=== PATIENT | male | born 1995 | race Caucasian/White ===

== ENCOUNTER 2022-07-01 11:26 | Outpatient (CLI) | payer OTHER, SELFPAY ==
[2022-07-01 11:49] LABS: Hematocrit 45.6 % (42.0-52.0); Hemoglobin 16.2 g/dL (14.0-18.0); Mean Corpuscular HGB Conc 35.5 g/dl (32-36); Mean Corpuscular Hemoglobin 30.6 pg (26-34); Mean Corpuscular Volume 86.2 fl (80-100); Mean Platelet Volume 10.5 fl (7.4-10.4); Platelet Count Result 207 k/mm3 (150-375); Red Blood Count 5.29 M/mm3 (4.6-6.20); Red Cell Distribution Width 12.3 % (11.5-14.5); White Blood Count 7.2 K/mm3 (4.5-10.0)
[2022-07-01 12:02] LABS: Alanine Aminotransferase 51 U/L (6-50); Albumin Level 5.2 g/dL (3.5-5.1); Alkaline Phosphatase 73 U/L (38-126); Anion Gap 15 mmol/L (8-16); Aspartate Amino Transferase 36 U/L (17-59); Bilirubin,Total 0.9 mg/dL (0.2-1.3); Blood Urea Nitrogen 12 mg/dL (9-20); CRP < 0.5 mg/dL (<1.0); Calcium 10.2 mg/dL (8.4-10.2); Carbon Dioxide 27 mmol/L (22-30); Chloride 98 mmol/L (98-107); Estimated Glomerular Filt Rate > 60; Glucose 92 mg/dL (65-110); Potassium 4.1 mmol/L (3.4-5.0); Sodium 140 mmol/L (137-145)
[2022-07-01 12:29] LABS: Erythrocyte Sedimentation Rate 1 mm/hr (0-20)
== END 2022-07-01 11:27 | disposition home or self-care (01) ==
PROVIDERS: PCP Family Medicine; Visit Provider Nurse Practitioner Family
DX: R19.4 Change in bowel habit (principal); R10.9 Unspecified abdominal pain
CPT/HCPCS: 36415; 80053; 85027; 85652; 86140

== ENCOUNTER 2022-07-05 12:36 | Outpatient (CLI) | payer OTHER, SELFPAY ==
[2022-07-15 15:46] LABS: Calprotectin, Stool 10 mcg/g
== END 2022-07-05 12:37 | disposition home or self-care (01) ==
PROVIDERS: PCP Family Medicine; Visit Provider Nurse Practitioner Family
DX: R10.9 Unspecified abdominal pain (principal); R19.4 Change in bowel habit
CPT/HCPCS: 83993

== ENCOUNTER 2022-07-28 02:07 | Day surgery (SDC) | payer OTHER, SELFPAY ==
[2022-07-19 12:55] VITALS: BMI 28.6
--- NOTE | 2022-07-27 16:50 | PM.HPGS ---
History of Present Illness History of Present Illness Consent: Risks, benefits, and alternatives have been discussed and questions answered. Patient agrees to proceed with procedure. Chief complaint: epigastric pain Narrative: Yair Rico is a 26 year old male was referred ?for evaluation of epigastric abdominal pain. ? States he has had epigastric abdominal pain for approximately a year now. ? At times epigastric pain will radiate to right upper quadrant and occasionally down to bilateral lower abdomen. ? Epigastric pain is worse in the AM and before eating. Pain improves after eating but reports excessive belching after eating.? he cannot identify any particular foods that make his symptoms worse. He tried omeprazole 20 mg for approximately 2 weeks back in September with no improvement in symptoms. Review of Systems Review of Systems: All systems reviewed & are unremarkable except as noted in HPI and below PMFSH Past Medical History Medical History Abdominal pain Change in bowel habits Social History Social History Smoking status: Never smoker Alcohol intake: current Drinks per week: 1 Alcohol use details: rare Substance use: never Substance use type: does not use Lack of Transportation: No Lack of Food: Never True Current Housing: I Have Housing Concerned About Future Housing: No Difficulty Paying Gas/Electric Bills: No Difficulty Paying for Meds: No Currently Unemployed: No Education: Decline to Answer Difficulty w/ Childcare or Family Care: No Living arrangements: with family 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[place] Spiritual care concerns: No Meds Home Medications and Allergies Home Medications Medication Instructions Recorded Confirmed Type lisinopril 10 1 tablet PO DAILY #90 tabs 06/22/22 07/19/22 Rx mg-hydrochlorothiazide 12.5 mg tablet Allergies Allergy/AdvReac Type Severity Reaction Status Date / Time No Known Allergies Allergy Verified 07/28/22 06:40 Exam Const: General: alert Orientation/consciousness: patient oriented x3 Resp: Auscultation: clear to auscultation bilaterally Cardio: Rhythm: regular rhythm GI: GI Palp: Yes Soft to palpation and No Tenderness to palpation present (GI) Neuro: General: patient oriented x3 Assessment and Plan Assessment and plan (1) Epigastric pain: Code(s): R10.13 - Epigastric pain Status: Acute Assessment and Plan: EGD with possible biopsy or dilatation or cautery.
[2022-07-28 06:41] VITALS: BP 142/81; PULSE 78; RESP 18; TEMP 36.7; O2SAT 100; BMI 29.1
[2022-07-28] MEDS: LACTATED RINGERS 1,000 ML 150 ML IV CONT (06:51)
--- NOTE | 2022-07-28 07:20 | WPDANESEPPF ---
Anes - Initial Pre Proc Eval Procedure: Operation Date: 07/28/22 07:30 Proposed Procedures p Esophagogastroduodenoscopy EGD - Jose Rosen MD Date/Time: 07/28/22 07:20 Surgeon: Jose Rosen MD Pre Op Diagnosis: epigastric pain Patient Data Age: 26 Gender: M Height: 1.65 m Weight: 79.5 kg Last Vital Signs Temp 98.1 F 07/28/22 06:41 Pulse 78 07/28/22 06:41 Resp 18 07/28/22 06:41 BP 142/81 H 07/28/22 06:41 Pulse Ox 100 07/28/22 06:41 O2 Del Method Room Air 07/28/22 06:41 Allergies Allergy/AdvReac Type Severity Reaction Status Date / Time No Known Allergies Allergy Verified 07/28/22 06:40 Home Medications Medication Instructions Recorded Confirmed Type lisinopril 10 1 tablet PO DAILY #90 tabs 06/22/22 07/28/22 Rx mg-hydrochlorothiazide 12.5 mg tablet Patient hx anesthesia problems: none Family hx anesthesia problems: none Results Review: All pre-operative results and documents have been reviewed as part of the pre-operative evaluation. [facility] Past Medical History Medical History Abdominal pain Change in bowel habits Social History Social History Smoking status: Never smoker Alcohol intake: current Drinks per week: 1 Alcohol use details: rare Substance use: never Substance use type: does not use Lack of Transportation: No Lack of Food: Never True Current Housing: I Have Housing Concerned About Future Housing: No Difficulty Paying Gas/Electric Bills: No Difficulty Paying for Meds: No Currently Unemployed: No Education: Decline to Answer Difficulty w/ Childcare or Family Care: No Living arrangements: with family 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 Informed Consent: The patient's anesthetic plan and its attendant risks and benefits were discussed with the patient/family/POA. Questions were solicited and answers provided to the satisfaction of the patient/family/POA.
[2022-07-28 07:37] VITALS: BP 92/54; PULSE 73; RESP 17; O2SAT 97
[2022-07-28 07:47] VITALS: BP 108/57; PULSE 81; RESP 22; O2SAT 100
[2022-07-28 07:57] VITALS: BP 118/74; PULSE 67; RESP 21; O2SAT 100
== END 2022-07-28 08:04 | disposition home or self-care (01) ==
PROVIDERS: PCP Family Medicine; Visit Provider Internal Medicine Gastroenterology
PROC: 0DJ08ZZ Inspection of Upper Intestinal Tract, Via Natural or Artificial Opening Endoscopic (ICD-10-PCS; CPT 43235; principal; 2022-07-28 07:30)
DX: R10.13 Epigastric pain (principal)
CPT/HCPCS: 43239; 87081; 88305; J2704; J7120

== ENCOUNTER 2022-08-20 07:36 | Outpatient (CLI) | payer OTHER, SELFPAY ==
--- NOTE | ~2022-08-20 | US_ITS ---
Abdominal Sonogram: Real-time sonographic imaging of the abdomen was performed. Clinical History: Abdominal pain Findings: The liver appears normal with no evidence of mass lesion or bile duct dilatation. Main por gavin vein demonstrates normal direction of flow. The spleen is normal in size without evidence of foca l lesion. The gallbladder is well distended, and appears normal with no evidence of gallstone or wal l thickening. The common bile duct measures 4 mm. The visualized pancreas, aorta, and IVC are unrema rkable. The right kidney measures 10.3 cm in length and the left kidney measures 10.1 cm. There is no hydronephrosis or renal calculus. Impression: Unremarkable abdominal ultrasound. Reviewed, dictated and finalized at location . [facility] Impression: Unremarkable abdominal ultrasound.
== END 2022-08-20 07:37 | disposition home or self-care (01) ==
PROVIDERS: PCP Family Medicine; Visit Provider Internal Medicine Gastroenterology
DX: R10.9 Unspecified abdominal pain (principal)
CPT/HCPCS: 76700

== ENCOUNTER 2023-05-17 08:23 | Outpatient (CLI) | payer OTHER, SELFPAY ==
--- NOTE | 2023-05-29 14:00 | WPDHOMESLEEP ---
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 He has hypertension, takes lisinopril-hydrochlorothiazide. He never has a refreshing night of sleep. He occasionally awakens from sleep short of breath. He frequently wakes at night with heartburn, belching or cough.??He frequently snores, and frequently snores loudly enough that others complain. His tells him that he stops breathing at night. He frequently has trouble sleeping when he has a cold. He occasionally wakes up gasping for breath during the night. He frequently has breathing problems at night. He never sweats excessively at night. He never notices his heart pounding or beating irregularly during the night. He never falls asleep during the day. He rarely falls asleep involuntarily, never falls asleep while driving. He never experiences loss of muscle tone with strong emotion. He never feels paralyzed on waking or falling asleep. He never experiences vivid dreams upon waking or falling asleep. He never feels afraid of going to sleep. He never has nightmares. He rarely recalls his dreams. He occasionally has thoughts racing through his mind. He rarely feels sad or depressed. He occasionally feels anxiety. He never notices parts of his body jerk. He never kicks during the night. He never feels crawling or aching feelings in his legs. He never feels leg pain at night. He never grinds his teeth, never has morning jaw pain. He never feels bothered by pain during the day, never is awakened by pain during the night. He never wakes up feeling stiff in the morning, never wakes feeling sore or achy in the morning. He occasionally awakens with pain in his neck, spine, or joints. He has headaches. He rarely wakes up feeling refreshed. Normal bedtime is 10:00 p.m., usually falling asleep within 10-30 minutes. He wakes up 2-3 times during the night to go to the bathroom. He typically gets about 6-7 hours of sleep per night. His wake up time is 5:00 a.m. On weekends, bedtime is 12 midnight, wake time is 8:00 a.m. He works rotating shifts. He does not take naps. A short nap is not refreshing. He feels better in the afternoons compared to other times of day. Habits:??Tobacco: never Caffeine:1-2 cups/day. Alcohol:3 per week Recreational substances: none PMFSH Past Medical History Medical History (Updated 05/29/23 @ 18:43 by Shani Whitlock MD) Abdominal pain Belching Change in bowel habits Essential (primary) hypertension Social History Social History Smoking status: Never smoker Alcohol intake: current Drinks per week: 1 Alcohol use details: rare Substance use: never Substance use type: does not use Lack of Transportation: No Lack of Food: Never True Current Housing: I Have Housing Concerned About Future Housing: No Difficulty Paying Gas/Electric Bills: No Difficulty Paying for Meds: No Currently Unemployed: No Education: Bachelor's Degree Difficulty w/ Childcare or Family Care: No Living arrangements: with family Occupation/Education: occupation 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
[2023-05-29 18:59] VITALS: BMI 29.1
== END 2023-05-17 12:00 | disposition home or self-care (01) ==
LOC: ANHCSM 08:24
PROVIDERS: PCP Family Medicine; Visit Provider Family Medicine
DX: G47.10 Hypersomnia, unspecified (principal)
CPT/HCPCS: 95800

== ENCOUNTER 2023-08-11 12:40 | Emergency (ER) | payer OTHER, SELFPAY ==
[2023-08-11 13:01] VITALS: BP 137/87; PULSE 86; RESP 16; TEMP 37.1; O2SAT 100
--- NOTE | 2023-08-11 13:26 | ED.URI ---
HPI - URI/Sore Throat General Chief Complaint: Upper Respiratory Infection Stated Complaint: Strep symptoms Time Seen by Provider: 08/11/23 13:20 Source: patient Mode of arrival: ambulatory Limitations: no limitations History of Present Illness HPI Narrative: Reuben is a 27-year-old male patient presenting to the clinic today with complaints of sore throat, headache, nasal congestion, ear pain, cough, and mild body aches x3 days. He denies any known fever or chills. No shortness of breath or chest pain. MD elicited complaint: sore throat and nasal congestion Related Data Allergies Allergy/AdvReac Type Severity Reaction Status Date / Time cefprozil Allergy Mild Rash Verified 03/08/23 10:49 Review of Systems Review of Systems: Pertinent positives per HPI. Patient denies any fever, chills, rash, visual changes, dizziness, shortness of breath, chest pain, palpitations, nausea, vomiting, diarrhea, constipation, abdominal pain, or any urinary issues. [facility] Past Medical History Medical History (Updated 08/11/23 @ 13:27 by Umang Park APRN) Abdominal pain Belching Change in bowel habits Essential (primary) hypertension Social History Social History Smoking status: Never smoker Alcohol intake: current Drinks per week: 1 Alcohol use details: rare Substance use: never Substance use type: does not use Lack of Transportation: No Lack of Food: Never True Current Housing: I Have Housing Concerned About Future Housing: No Difficulty Paying Gas/Electric Bills: No Difficulty Paying for Meds: No Currently Unemployed: No Education: Bachelor's Degree Difficulty w/ Childcare or Family Care: No Living arrangements: with family Occupation/Education: occupation 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 There is no relevant family history pertinent to the patient complaint. Exam Narrative: General: Well-developed, well nourished, in no apparent distress Head: Normocephalic, atraumatic Eyes: Pupils equally round and reactive to light bilaterally, EOM intact, sclera and conjunctive clear, no discharge, lids normal Ears: TMs intact and clear, ear canals clear, no drainage, grossly hearing normal. Nose: Nares patent, no discharge, no inflammation, no sinus tenderness. Mouth: Oral pharynx without lesions or masses, good dentition, MMM. Neck: Supple, trachea midline, no enlargement of anterior or posterior cervical nodes, no thyroid masses or goiter palpable. Cardio: Regular rate and rhythm, s1 and s2 normal, no murmur appreciated. Resp: Clear to auscultation bilaterally, no rhonchi, rales, wheezing or rubs Course Course Emergency Course: Portions of this record may have been created with voice recognition software. Level of Care: Express Care Visit Vital Signs Vital signs: Vital Signs Temperature 37.1 C 08/11/23 13:01 Pulse Rate 86 08/11/23 13:01 Respiratory Rate 16 08/11/23 13:01 Blood Pressure 137/87 08/11/23 13:01 Pulse Oximetry 100 08/11/23 13:01 Temperature 37.1 C 08/11/23 13:01 Pulse Rate 86 08/11/23 13:01 Respiratory Rate 16 08/11/23 13:01 Blood Pressure 137/87 08/11/23 13:01 Pulse Oximetry 100 08/11/23 13:01 Vital signs reviewed MDM - URI/Sore Throat Differential Diagnosis Differential diagnosis: Likely sinusitis, viral infection, influenza and pharyngitis Lab Data Labs: Influenza A Screen Negative Reference Range: Negative Influenza B Screen Negative Reference Range: Negative Strep Screen Presumptive Negative
== END 2023-08-11 13:35 | disposition home or self-care (01) ==
PROVIDERS: Emergency Provider Nurse Practitioner Family; PCP Family Medicine
DX: U07.1 COVID-19 (principal); I10 Essential (primary) hypertension
CPT/HCPCS: 87081; 87426; 87804; 87880; 99213; C9803; G0463

== ENCOUNTER 2023-12-29 15:04 | Outpatient (CLI) | payer BC, SELFPAY ==
[2023-12-29 19:45] LABS: Alanine Aminotransferase 69 U/L (6-50); Albumin Level 5.2 g/dL (3.5-5.1); Alkaline Phosphatase 82 U/L (38-126); Anion Gap 9 mmol/L (4-12); Aspartate Amino Transferase 43 U/L (17-59); Blood Urea Nitrogen 10 mg/dL (9-20); Calcium 10.1 mg/dL (8.4-10.2); Carbon Dioxide 26 mmol/L (22-30); Chloride 103 mmol/L (98-107); Cholesterol 205 mg/dL (0-200); Estimated Glomerular Filt Rate > 60; Glucose 90 mg/dL (65-110); HDL Direct 47 mg/dL; Potassium 3.9 mmol/L (3.4-5.0); Sodium 138 mmol/L (137-145); Triglycerides 149 mg/dL (<150)
[2023-12-29 19:55] LABS: LDL Cholesterol Direct 125 mg/dL
== END 2023-12-29 15:05 | disposition home or self-care (01) ==
LOC: ANHGOSHLAB 15:06
PROVIDERS: PCP Family Medicine; Visit Provider Family Medicine
DX: Z13.220 Encounter for screening for lipoid disorders (principal); Z13.228 Encounter for screening for other metabolic disorders
CPT/HCPCS: 36415; 80053; 80061

== ENCOUNTER 2024-01-28 10:26 | Emergency (ER) | payer BC, SELFPAY ==
[2024-01-28 10:40] VITALS: BP 137/84; PULSE 91; RESP 16; TEMP 37.3; O2SAT 100
--- NOTE | 2024-01-28 10:51 | ED.URI ---
HPI - URI/Sore Throat General Chief Complaint: Upper Respiratory Infection Stated Complaint: sore throat,headaches,cough,yojana Source: patient and RN notes reviewed Mode of arrival: ambulatory Limitations: no limitations History of Present Illness HPI Narrative: 28-year-old male presented for complaint of headache, body aches, sinus pressure/congestion, cough, fever/chills. Onset 2 days. Took DayQuil and NyQuil for symptoms. Denies sob, wheezing, n/v/d. MD elicited complaint: cough Related Data Allergies Allergy/AdvReac Type Severity Reaction Status Date / Time cefprozil Allergy Mild Rash Verified 01/28/24 10:37 Review of Systems Review of Systems: CONSTITUTIONAL: Endorses malaise, chills, sweats, fever EYES: Denies visual changes, redness, or discharge ENT: Reports rhinorrhea, congestion, sore throat CARDIOVASCULAR: Denies chest pain, palpitations, edema RESPIRATORY: Reports cough, post nasal drainage. Denies dyspnea GASTROINTESTINAL: Denies abdominal pain, nausea, vomiting, diarrhea SKIN: Denies rash or itching MUSCULOSKELETAL: Denies myalgia NEUROLOGIC: Denies headache PMFSH Past Medical History Medical History Abdominal pain Belching Change in bowel habits Essential (primary) hypertension Social History Social History Social History: caffeine 150mg daily Smoking status: Never smoker Second hand tobacco smoke exposure: No Alcohol intake: current Drinks per week: 1 Substance use: never Substance use type: does not use Lack of Transportation: No Lack of Food: Never True Current Housing: I Have Housing Concerned About Future Housing: No Difficulty Paying Gas/Electric Bills: No Difficulty Paying for Meds: No Currently Unemployed: No Education: Bachelor's Degree Difficulty w/ Childcare or Family Care: No Living arrangements: with family Occupation/Education: occupation 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 HEAD: Normocephalic EYES: PERRLA, conjunctivae clear ENT: Mucous membranes moist. TM pearly feliz with dull light reflex bilaterally; no tragal tenderness. Oropharynx not erythematous without lesions or exudate, no drooling, no hoarseness, no trismus, uvula midline. No tripod positioning, muffled voice, soft palate or pharyngeal wall bulging NECK: Supple. No lymphadenopathy CHEST: Clear to auscultation, breath sounds equal. No wheezing, rhonchi, rales, or stridor. No respiratory distress, speaks in full sentences. HEART: Regular rate and rhythm. No murmur heard. SKIN: Warm, dry, no rash. NEURO: Alert and oriented x3. PSYCH: Normal mood and affect Course Course Emergency Course: Patient is aware of diagnosis, understands and agrees to treatment plan. Anticipatory guidance given. Patient agrees to follow-up as directed and is aware of reasons to seek care at the emergency department. Portions of this record may have been created with voice recognition software Level of Care: Express Care Visit Vital Signs Vital signs: Vital Signs Temperature 99.2 F 01/28/24 10:40 Pulse Rate 91 01/28/24 10:40 Respiratory Rate 16 01/28/24 10:40 Blood Pressure 137/84 01/28/24 10:40 Pulse Oximetry 100 01/28/24 10:40 Temperature 99.2 F 01/28/24 10:40 Pulse Rate 91 01/28/24 10:40 Respiratory Rate 16 01/28/24 10:40 Blood Pressure 137/84 01/28/24 10:40 Pulse Oximetry 100 01/28/24 10:40 reviewed MDM - URI/Sore Throat MDM Narrative Medical decision making narrative: Negative flu, COVID, strep result reviewed with pt. Advise supportive treatments. Patient is appropriate for outpatient treatment and follow-up. Differential Diagnosis Differential diagnosis: Likely upper respiratory infection,
== END 2024-01-28 11:09 | disposition home or self-care (01) ==
PROVIDERS: Emergency Provider Nurse Practitioner Family; PCP Family Medicine
DX: J06.9 Acute upper respiratory infection, unspecified (principal); Z20.822 Contact with and (suspected) exposure to COVID-19; I10 Essential (primary) hypertension
CPT/HCPCS: 87081; 87426; 87804; 87880; 99213; G0463